=== PATIENT | female | born 1985 | race Caucasian/White ===

== ENCOUNTER → 2016-08-17 | Outpatient (CLI) | payer BC ==
[~2016-08-17] MED LIST: CALCTAB5 PO; CHOL100010 PO; LEVO100T7 PO; PRENTAB26 PO
[2016-08-17 19:11] LABS: THYROID STIMULATING HORMONE 4.65 uIu/ml (0.300-4.500)
== END | disposition home or self-care (01) ==
LOC: C.LAB 17:37
PROVIDERS: ATTEND Internal Medicine Endocrinology, Diabetes & Metabolism
DX: E89.0 Postprocedural hypothyroidism (principal)

== ENCOUNTER → 2016-10-15 | Outpatient (CLI) | payer BC ==
[2016-10-15 11:40] LABS: THYROID STIMULATING HORMONE 0.039 uIu/ml (0.300-4.500)
== END | disposition home or self-care (01) ==
LOC: C.LAB 10:10
PROVIDERS: ATTEND Internal Medicine Endocrinology, Diabetes & Metabolism
DX: E89.0 Postprocedural hypothyroidism (principal)

== ENCOUNTER → 2016-11-15 | Outpatient (CLI) | payer BC ==
--- NOTE | 2016-11-15 10:56 | DIAGNOSTIC IMAGING REPORT ---
(BARIUM SWALLOW) ESOPHAGUS CLINICAL HISTORY: R13.10 [id number] COMPARISON STUDY: None FLUOROSCOPY TIME: 48 seconds. FINDINGS: 22 fluoroscopic spot images were acquired. The patient swallowed effervescent granules and barium without difficulty. No mass lesions or ulcerations are evident within the esophagus. The swallowing mechanics appeared normal. The patient swallowed one half inch barium tablet which freely passed into the stomach. IMPRESSION: Normal study. Electronically signed by: Migue Dominguez M.D. 11/15/2016 10:55 AM Dictated Date/Time: 11/15/2016 10:54 AM
== END | disposition home or self-care (01) ==
LOC: C.RAD 10:16
PROVIDERS: ATTEND Family Medicine
DX: R13.10 Dysphagia, unspecified (principal)

== ENCOUNTER → 2016-12-06 | Outpatient (CLI) | payer BC ==
[~2016-12-06] MED LIST changes: +OPTIRAY 320 IV PRN
--- NOTE | 2016-12-06 08:56 | DIAGNOSTIC IMAGING REPORT ---
CT SOFT TISSUE NECK WITH CT DOSE: 304.60 mGy.cm CLINICAL HISTORY: R13.10 [id number] Neck [id number] TECHNIQUE: Helical images were acquired during intravenous administration of 77 cc of Optiray 320. COMPARISON STUDY: Thyroid ultrasound dated 10/03/2015, barium swallow dated 11/15/2016 FINDINGS: The visualized portions of the lung apices are unremarkable. No enhancing thyroid tissue is visualized. No salivary gland masses are visualized. There are no pathologically enlarged cervical lymph nodes. No necrotic nodes are evident. There are no fluid collections suspicious for abscess. There is no evidence of airway compromise. No mucosal space masses are visualized. IMPRESSION: No visible thyroid tissue. Otherwise normal CT scan of the neck. Electronically signed by: Migue Dominguez M.D. 12/06/2016 8:54 AM Dictated Date/Time: 12/06/2016 8:50 AM
== END | disposition home or self-care (01) ==
LOC: C.CTS 08:19
PROVIDERS: ATTEND Family Medicine
DX: R13.10 Dysphagia, unspecified (principal); R22.1 Localized swelling, mass and lump, neck

== ENCOUNTER → 2017-04-22 | Outpatient (CLI) | payer BC ==
[~2017-04-22] MED LIST changes: -OPTIRAY 320 IV PRN
[2017-04-22 10:44] LABS: THYROID STIMULATING HORMONE 0.107 uIu/ml (0.300-4.500)
== END | disposition home or self-care (01) ==
LOC: C.LAB 09:09
PROVIDERS: ATTEND Internal Medicine Endocrinology, Diabetes & Metabolism
DX: E89.0 Postprocedural hypothyroidism (principal)

== ENCOUNTER → 2017-05-02 | Outpatient (CLI) | payer BC ==
[2017-05-02 16:04] LABS: BASO % 0.3 %; BASO ABS # 0.01 K/uL (0-0.2); COMPLETE YES; EOS % 2.3 %; HEMATOCRIT 37.1 % (37-47); IG% 0.3 %; LYMPH % 36.5 %; LYMPH ABS # 1.45 K/uL (1.2-3.4); MEAN CELL VOLUME 94.9 fL (80-100); MEAN CORPUSCULAR HEMOGLOBIN 31.2 pg (25-34); MEAN CORPUSCULAR HGB CONC 32.9 g/dl (32-36); MEAN PLATELET VOLUME 12.1 fL (7.4-10.4); MONO % 7.6 %; PLATELET COUNT 146 K/uL (130-400); RED BLOOD COUNT 3.91 M/uL (4.2-5.4); WHITE BLOOD COUNT 3.97 K/uL (4.8-10.8)
[2017-05-02 21:20] LABS: LYME DISEASE AB IGG NEG (NEG); LYME DISEASE AB IGM NEG (NEG)
== END | disposition home or self-care (01) ==
LOC: C.LAB 15:05
PROVIDERS: ATTEND Physician Assistant
DX: R00.2 Palpitations (principal)

== ENCOUNTER → 2017-07-11 | Outpatient (CLI) | payer BC ==
[2017-07-11 10:36] LABS: BASO % 0.3 %; BASO ABS # 0.01 K/uL (0-0.2); COMPLETE YES; HEMATOCRIT 38.9 % (37-47); LYMPH % 39.9 %; LYMPH ABS # 1.44 K/uL (1.2-3.4); MEAN CELL VOLUME 96.5 fL (80-100); MEAN CORPUSCULAR HEMOGLOBIN 31.8 pg (25-34); MEAN CORPUSCULAR HGB CONC 32.9 g/dl (32-36); MEAN PLATELET VOLUME 11.4 fL (7.4-10.4); MONO % 6.4 %; NEUT % 50.4 %; PLATELET COUNT 189 K/uL (130-400); RED BLOOD COUNT 4.03 M/uL (4.2-5.4); WHITE BLOOD COUNT 3.61 K/uL (4.8-10.8)
== END | disposition home or self-care (01) ==
LOC: C.LAB 08:48
PROVIDERS: ATTEND General Practice
DX: R53.82 Chronic fatigue, unspecified (principal); A69.29 Other conditions associated with Lyme disease; E55.9 Vitamin D deficiency, unspecified

== ENCOUNTER → 2017-08-29 | Outpatient (CLI) | payer OTHER | END | disposition home or self-care (01) | LOC: C.LAB 08:30 | PROVIDERS: ATTEND Internal Medicine Endocrinology, Diabetes & Metabolism | DX: E89.0 Postprocedural hypothyroidism (principal) ==

== ENCOUNTER → 2018-03-03 | Outpatient (CLI) | payer OTHER | END | disposition home or self-care (01) | LOC: C.LAB 09:05 | PROVIDERS: ATTEND Internal Medicine Endocrinology, Diabetes & Metabolism | DX: E89.0 Postprocedural hypothyroidism (principal) ==